=== PATIENT | female | born 1995 | race Caucasian/White ===

== ENCOUNTER 2018-03-25 19:41 | Emergency (ER) | payer MEDICAID | END 2018-03-25 21:05 | disposition left against medical advice (07) | LOC: MERGE 19:41 → ED 19:41 | DX: Z02.89 Encounter for other administrative examinations (principal); Z00.00 Encounter for general adult medical examination without abnormal findings ==

== ENCOUNTER 2018-04-22 23:03 | Emergency (ER) | payer MEDICAID ==
[2018-04-22 23:39] VITALS: TEMP 98.7
--- NOTE | 2018-04-22 23:54 | ED PDOC ---
Arrival/HPI - General Chief Complaint: Shortness Of Breath Time Seen by Provider: 04/22/18 23:29 Historian: Patient - History of Present Illness Narrative History of Present Illness (Text): 04/23/18 23:29 Jaclyn Antoine is a 22 year old female, with no significant past medical history, who presents to the Emergency department complaining of shortness of breath since yesterday. Patient describes her breathing as "heavy". Patient states symptoms are intermittent and occur at rest. Patient informs she is currently short of breath in the emergency department. Patient states in the past she felt her heart "racing" when she consumed alcohol. Patient denies fevers, chills, headache, dizziness, chest pain, dyspnea on exertion, wheezing, cough, abdominal pain, nausea, vomiting, diarrhea, back pain, neck pain, or any other complaint. Time/Duration: 24 hours Symptom Onset: Sudden Symptom Course: Intermittent Activities at Onset: Light Context: Home Past Medical History - Provider Review Nursing Documentation Reviewed: Yes - Psychiatric Hx Substance Use: No Family/Social History - Physician Review Nursing Documentation Reviewed: Yes Family/Social History: No Known Family HX Smoking Status: Never Smoked Hx Alcohol Use: Yes (former) Frequency of alcohol use: Socially Hx Substance Use: No Allergies/Home Meds Allergies/Adverse Reactions: Allergies No Known Allergies Allergy (Verified 04/22/18 23:36) Home Medications: Home Meds Medication Instructions Recorded Confirmed No Known Home Med 04/22/18 04/22/18 Review of Systems - Physician Review All systems were reviewed & negative as marked: Yes - Review of Systems Constitutional: absent: Fevers, Night Sweats Respiratory: SOB. absent: Cough Cardiovascular: absent: Chest Pain, BURT Gastrointestinal: absent: Abdominal Pain, Diarrhea, Nausea, Vomiting Musculoskeletal: absent: Back Pain, Neck Pain Neurological: absent: Headache, Dizziness Physical Exam - Physical Exam Narrative Physical Exam (Text): 04/23/18 23:28 Gen: VS reviewed, alert, well developed, well nourished, nontoxic, mild distress. ENT: normal pharynx. Eye: Mild conjunctival redness. EOMI, PERRL. Neck: no JVD, supple, no adenopathy. CV: regular rate, regular rhythm, no rubs, no murmur, no gallops, S1, S2, pulses equal and strong. Pulm: no distress, clear to auscultation, no wheeze, no rhonchi, breath sounds equal, no rales. Abd: soft, nontender, no guarding, no rebound, no rigidity, normal bowel sounds. Ext: no edema. Skin: good color, no rash, no cyanosis. Psych: responds appropriately to questions, normal affect. Neuro: oriented x 3, CN2-12 intact grossly, motor intact, sensation intact. Vital Signs Reviewed: Yes Vital Signs Temp Pulse Resp BP Pulse Ox 04/22/18 23:36 98.7 F 91 H 18 139/79 98 Temperature: Afebrile Blood Pressure: Normal Pulse: Regular Respiratory Rate: Normal Appearance: Positive for: Well-Appearing, Non-Toxic, Comfortable Pain Distress: None Mental Status: Positive for: Alert and Oriented X 3 Medical Decision Making ED Course and Treatment: 04/23/18 23:29 Impression: Patient is a 22 year old female who presents to the emergency department with shortness of breath. 04/23/18 02:20 patient was seen for nonsdescript dyspnea. patient did not exhibit symptoms during ED course during my time of observation. labs ok, cxr ok, ekg unremarkable, PERC negative. stable for discharge and patient will follow up with her pcp tomorrow. - RAD Interpretation Narrative RAD Interpretations (Text): 04/23/18 02:17 Reviewed Chest X-Ray, shows: No focal infiltrate. No pneumothorax. No cardiomegaly Radiology Orders: 04/22/18 23:39 CHEST PORTABLE [RAD] Stat Electrical Parts Reconditioner: ED Physician - EKG Interpretation EKG Interpretation (Text): 04/23/18 12:56 Reviewed EKG, shows: NSR at 93 BPM. Normal QRS. Normal [place]. No acute ST/T wave abnormality. Interpreted by ED Physician: Yes - Scribe Statement The provider has reviewed the documentation as recorded by the Scribe Wilner Zamudio All medical record entries made by the Scribe were at my direction and personally dictated by me. I have reviewed the chart and agree that the record accurately reflects my personal performance of the history, physical exam, medical decision making, and the department course for this patient. I have also personally directed, reviewed, and agree with the discharge instructions and disposition. Disposition/Present on Arrival - Present on Arrival Any Indicators Present on Arrival: No History of DVT/PE: No History of Uncontrolled Diabetes: No Urinary Catheter: No History of Decub. Ulcer: No History Surgical Site Infection Following: None - Disposition Have Diagnosis and Disposition been Completed?: Yes Diagnosis: Dyspnea, Elevated BP without diagnosis of hypertension Disposition: HOME/ ROUTINE Disposition Time: 02:22 Patient Plan: Discharge Patient Problems: Current Active Problems Problem Status Onset Dyspnea Acute Elevated BP without diagnosis of hypertension Acute Condition: STABLE Discharge Instructions (ExitCare): Shortness of Breath (Dyspnea) (DC) Additional Instructions: return for any new or worsening symptoms. follow up with your primary care doctor as soon as possible. call today to make an appointment. see your doctor to recheck your blood pressure. Referrals: Gabriel Damon MD [Primary Care Provider] - Follow up with primary Forms: [employer] ([place])
[2018-04-23 00:22] LABS: BASO # 0.01 K/mm3 (0.0-2.0); BASO % 0.2 % (0.0-3.0); EOS % 0.5 % (1.5-5.0); HEMOGLOBIN 13.3 g/dL (12.0-16.0); LYMPH # 2.7 (1.2-3.4); LYMPH % 41.2 % (22.0-35.0); MEAN CELL VOLUME 84.8 fl (80.0-105.0); MEAN PLATELET VOLUME 10.5 fl (7.0-11.0); MONO # 0.4 (0.1-0.6); RBC 4.75 10^6/uL (3.5-6.1); RED CELL DISTRIBUTION WIDTH 13.8 % (11.5-14.5); WHITE BLOOD COUNT 6.6 10^3/uL (4.5-11.0)
[2018-04-23 00:28] LABS: ALBUMIN 4.8 g/dL (3.0-4.8); BLOOD UREA NITROGEN 13 mg/dL (7-21); CALCIUM 9.5 mg/dL (8.4-10.5); GFR NON-AFRICAN AMERICAN > 60
[2018-04-23 00:42] LABS: ALT/SGPT < 6 U/L (7-56); AST/SGOT 36 U/L (14-36)
[2018-04-23 01:56] LABS: BARBITURATES, UR NEGATIVE (NEGATIVE); BENZODIAZEPINES, UR NEGATIVE (NEGATIVE); OPIATES, UR NEGATIVE (NEGATIVE); PHENCYCLIDINE, UR NEGATIVE (NEGATIVE)
[2018-04-23 02:19] VITALS: BP 142/56; PULSE 90; RESP 18; O2SAT 98
--- NOTE | 2018-04-23 09:17 | CARD ---
APPROVED REPORT Date of service: 04/22/2018 EKG Measurement Heart [id number] <Conclusion> Normal sinus rhythm Normal ECG
--- NOTE | 2018-04-23 09:33 | RAD ---
Date of service: 04/23/2018 HISTORY: chest pain COMPARISON: No prior. FINDINGS: LUNGS: No active pulmonary disease. PLEURA: No significant pleural effusion identified, no pneumothorax apparent. CARDIOVASCULAR: No aortic atherosclerotic calcification present. Normal cardiac size. No pulmonary vascular congestion. OSSEOUS STRUCTURES: No significant abnormalities. VISUALIZED UPPER ABDOMEN: Normal. OTHER FINDINGS: None. IMPRESSION: No active disease.
== END 2018-04-23 02:42 | disposition home or self-care (01) ==
LOC: ED 23:03
DX: R06.00 Dyspnea, unspecified (principal); R03.0 Elevated blood-pressure reading, without diagnosis of hypertension